=== PATIENT | male | born 1990 | race Caucasian/White ===

== ENCOUNTER 2021-01-29 06:00 | Emergency (ER) | payer OTHER, SELFPAY ==
--- NOTE | ~2021-01-29 | CT_ITS ---
EXAMINATION: CT ABDOMEN AND PELVIS WITHOUT CONTRAST CLINICAL INFORMATION: Bilateral flank and testicular pain COMPARISON: None TECHNIQUE: Multidetector volumetric imaging was performed from the superior aspect of the liver through the pubic symphysis. Sagittal and coronal reformatted images were obtained on the technologist's workstation. This CT examination was performed using dose optimization techniques as appropriate, variously including the following: *Automated exposure control *Adjustment of mA and/or kV according to patient size (this includes techniques or standardized protocols for targeted exams where dose is matched to indication/reason for exam; i.e. extremities or head) *Use of iterative reconstruction technique DLP: And 78 mGy-cm FINDINGS: LUNG BASES: The visualized lung bases are unremarkable. LIVER, GALLBLADDER, AND BILIARY TREE: The liver is normal in size, shape, and attenuation. No focal hepatic lesion or biliary ductal dilatation is present. The gallbladder is unremarkable with no evidence of radiopaque gallstones, gallbladder wall thickening, or obvious pericholecystic inflammatory changes. PANCREAS: Unremarkable. SPLEEN: Unremarkable. ADRENAL GLANDS: Unremarkable. KIDNEYS AND URETERS: There is a 2 mm calculus in the distal left ureter near the ureterovesicular junction with minimal hydronephrosis. No right hydronephrosis. BLADDER: Nearly empty and not adequately evaluated. GASTROINTESTINAL TRACT: Assessment for wall thickening in some segments of the colon is limited due to luminal collapse, though no significant pericolonic stranding is seen to strongly suggest a colitis. No evidence of bowel obstruction. The appendix is unremarkable. No free fluid or free air is seen. ABDOMINAL WALL: No significant hernia is appreciated. LYMPH NODES: Normal. VASCULAR: Unremarkable. PELVIC VISCERA: Unremarkable. OSSEOUS STRUCTURES: Unremarkable. CT/CT abdomen pelvis wo con IMPRESSION: Distal left ureteral calculus measuring 2 mm near the ureterovesicular junction with minimal hydronephrosis.
--- NOTE | ~2021-01-29 | US_ITS ---
EXAMINATION: US SCROTUM CLINICAL INFORMATION: Pain. Evaluate for testicular torsion. COMPARISON: Scrotal ultrasound from 10/02/2017. CT abdomen and pelvis from 01/29/2021 TECHNIQUE: A sonogram of the scrotum was performed assessing hagan-scale appearance and color Doppler flow. Spectral Doppler analysis of the arterial and venous flow were performed in the testes bilaterally. FINDINGS: The right and left testicles have normal size, contour and echotexture. No microlithiasis or mass. Color Doppler images with spectral waveforms show presence of normal, symmetric arterial and venous flow within each testicle. No hydrocele or varicocele. No epididymal abnormality detected. US/US scrotum doppler IMPRESSION: Normal testicles. No evidence of testicular mass or torsion.
[2021-01-29 06:11] VITALS: RESP 14
[2021-01-29] MEDS: HYDROmorphone HCl 1 MG/ML SYRINGE IVPUSH (06:11)
[2021-01-29 06:15] VITALS: BP 143/97; PULSE 63; RESP 22; TEMP 36.7; O2SAT 99; BMI 37.3
--- NOTE | 2021-01-29 06:17 | ED.GENADULT ---
HPI - General Adult General Chief complaint: Urogenital-Male Stated complaint: Testicular Pain Time Seen by Provider: 01/29/21 06:05 Source: patient and EMS Mode of arrival: EMS Limitations: no limitations History of Present Illness HPI narrative: Patient comes emergency room complaining of left-sided testicular pain and left-sided flank pain. Patient states he has had this pain before, he was told that he had kidney stones. Pain started approximately 2-3 hours prior to arrival. Patient denies dysuria Related Data Previous Rx's Medication Instructions Recorded ketorolac 10 mg PO Q6H PRN 5 Days #10 tab 01/29/21 ondansetron HCl [Zofran] 4 mg PO Q6H PRN #10 tab 01/29/21 prednisone 20 mg PO DAILY #5 tab 01/29/21 tamsulosin 0.4 mg PO DAILY #10 cap 01/29/21 Allergies Allergy/AdvReac Type Severity Reaction Status Date / Time No Known Allergies Allergy Unverified 03/23/20 19:28 [No Known Allergies*] Review of Systems Review of Systems: Constitutional : No Weight loss, No Fever, No Chills, No Night Sweats, No Fatigue, No Malaise ENT/Mouth : No Hearing loss, No Ear Pain, No Nasal Congestion, No Sinus Pain, No Hoarseness, No sore throat, No Rhinorrhea, No Swallowing Difficulty Eyes: No Eye Pain, No Swelling, No Redness, No Foreign Body, No Discharge, No Vision Changes Cardiovascular : No Chest Pain, No SOB, No Dyspnea on Exertion, No Orthopnea, No Edema, No Palpitations Respiratory : No Cough, No Sputum, No Wheezing, No Smoke Exposure, No Dyspnea Gastrointestinal : No Nausea, No Vomiting, No Diarrhea, No Constipation, No abdominal Pain, No Hematochezia, No Melena Genitourinary : no irregular bleeding, No Dysuria, No Urinary Frequency, No Hematuria, No Urinary Incontinence, No Urgency, complaining of left-sided Flank Pain and left testicular pain, No Urinary Flow Changes, No Hesitancy Musculoskeletal : No joint pain, No Myalgias, No Joint Swelling Skin : No Skin Lesions, No rash Neuro : No Weakness, No Numbness, No Paresthesias, No Loss of Consciousness, No Dizziness, No Headache Psych : No Anxiety/Panic, No Depression, No SI/HI/AH/VH, No Social Issues, Heme/Lymph: No Bruising, No Bleeding,No Lymphadenopathy Endocrine : No Polyuria, No Polydipsia, No Temperature Intolerance [facility] Past Medical History Medical History Asthma Social History Social History Advance Directives: Yes Advance Directives Information Provided: Yes Advance Directives on File: No Physical Exam Vital Signs: Vital Signs: Last Vital Signs Temp 98.1 F 01/29/21 06:15 Pulse 56 01/29/21 07:00 Resp 23 H 01/29/21 07:00 BP 144/82 H 01/29/21 07:00 Pulse Ox 98 01/29/21 07:00 Body Mass Index 37.3 Appearance: Alert. Oriented X3. Looks very uncomfortable, Eyes: Pupils equal, round and reactive to light. ENT: Pharynx normal. Neck: Normal inspection. Neck supple. No lymph nodes noted. No crepitus CVS: Normal heart rate and rhythm. Pulses normal. Normal S1 and S2 Respiratory: No respiratory distress. Breath sounds normal. No Wheezing. No rales Abdomen: Soft, mild tenderness to palpation. No rigidity. No distention. : Tenderness to palpation over the left testicle Skin: Skin warm and dry. Normal skin color. Normal skin turgor. Extremities: No lower extremity edema. No lower extremity edema. No Lacerations. No Rash Neuro: Oriented X 3. No motor deficit. No sensory deficit. Moving all extermities. No slurred speech. Course Course Course Narrative: Patient had 1 syncopal episodes in the emergency room due to pain, weakness, no seizure-like activity. Testicular Salter sound negative, CT scan shows 2 mm stone distal left ureter Urinalysis pending Sign-out given to Dr. Estes Medical Decision Making Lab Data Result diagrams: 01/29/21 06:40 01/29/21 06:40 Labs: Lab Results 01/29/21 01/29/21 Range/Units 06:40 06:40 WBC 13.4 H (4.8-10.8) X10*3/uL RBC 4.83 (4.60-5.80) X10*6/uL Hgb 14.3 (14.0-18.0) g/dl Hct 41.1 L (42-52) % MCV 85.1 (80-98) fL MCH 29.6 (27.0-33.0) pg MCHC 34.8 (31.0-36.0) g/dl RDW 12.2 (11.0-16.0) % Plt Count 282 (160-400) X10*3/uL MPV 9.2 L (9.4-12.4) fL Immature Gran % (Auto) 0.6 H (0.0-0.4) % Neut % (Auto) 76.4 H (45-73) % Lymph % (Auto) 16.1 L (20-40) % [place] % (Auto) 6.2 (2-11) % Eos % (Auto) 0.5 (0-4) % Baso % (Auto) 0.2 (0-2) % Lymph # (Auto) 2.2 (1.2-4.9) X10*3/uL [place] # (Auto) 0.8 (0.1-1.2) X10*3/uL Eos # (Auto) 0.1 (0.0-0.4) X10*3/uL Baso # (Auto) 0.0 (0.0-0.2) X10*3/uL Abs Immat Gran (auto) 0.08 H (0.00-0.03) X10*3/uL Absolute Neuts (auto) 10.3 H (2.0-8.3) X10*3/uL Absolute Nucleated RBC 0.000 (0.0-0.012) X10*3/uL Nucleated RBC % (auto) 0.0 (0.0-0.2) /100WBC Sodium 141 (135-145) mmol/L Potassium 3.9 (3.3-5.1) mmol/L Chloride 111 H (96-108) mmol/L Carbon Dioxide 19 L (22-29) mmol/L Anion Gap 15 (12-20) BUN 11 (9-16) mg/dL Creatinine 0.89 (0.5-1.4) mg/dL Estim Creat Clear Calc 165.5 Estimated GFR > 60 Random Glucose 134 H (60-115) mg/dL Calcium 9.4 (8.4-10.2) mg/dL Total Bilirubin 0.5 (0.0-1.0) mg/dL Direct Bilirubin 0.3 (0.0-0.5) mg/dL AST 14 (5-37) U/L ALT 23 (0-40) U/L Alkaline Phosphatase 74 (39-117) U/L Total Protein 7.2 (6.5-8.0) g/dL Albumin 4.4 (3.5-5.0) g/dL Imaging Data Scrotum Doppler ultrasound: Radiologist's impression: The right and left testicles have normal size, contour and echotexture. No microlithiasis or mass. Color Doppler images with spectral waveforms show presence of normal, symmetric arterial and venous flow within each testicle. No hydrocele or varicocele. No epididymal abnormality detected. US/US scrotum doppler IMPRESSION: Normal testicles. No evidence of testicular mass or torsion. CT scan - abdomen: Radiologist's impression: FINDINGS: LUNG BASES: The visualized lung bases are unremarkable. LIVER, GALLBLADDER, AND BILIARY TREE: The liver is normal in size, shape, and attenuation. No focal hepatic lesion or biliary ductal dilatation is present. The gallbladder is unremarkable with no evidence of radiopaque gallstones, gallbladder wall thickening, or obvious pericholecystic inflammatory changes. PANCREAS: Unremarkable. SPLEEN: Unremarkable. ADRENAL GLANDS: Unremarkable. KIDNEYS AND URETERS: There is a 2 mm calculus in the distal left ureter near the ureterovesicular junction with minimal hydronephrosis. No right hydronephrosis. BLADDER: Nearly empty and not adequately evaluated. GASTROINTESTINAL TRACT: Assessment for wall thickening in some segments of the colon is limited due to luminal collapse, though no significant pericolonic stranding is seen to strongly suggest a colitis. No evidence of bowel obstruction. The appendix is unremarkable. No free fluid or free air is seen. ABDOMINAL WALL: No significant hernia is appreciated. LYMPH NODES: Normal. VASCULAR: Unremarkable. PELVIC VISCERA: Unremarkable. OSSEOUS STRUCTURES: Unremarkable. CT/CT abdomen pelvis wo con IMPRESSION: Distal left ureteral calculus measuring 2 mm near the ureterovesicular junction with minimal hydronephrosis. Discharge Plan Discharge Clinical Impression: Ureterolithiasis, Syncope, vasovagal Patient Disposition: Home, Self-Care Instructions: Kidney Stones (ED) Additional Instructions: Please follow-up with your primary care physician tomorrow. If you have any worsening or new symptoms, please return to the emergency room or call 911 Prescriptions: New ketorolac 10 mg tablet 10 mg PO Q6H PRN (Reason: pain) 5 Days Qty: 10 RF: 0 prednisone 20 mg tablet 20 mg PO DAILY Qty: 5 RF: 0 tamsulosin 0.4 mg capsule 0.4 mg PO DAILY Qty: 10 RF: 0 ondansetron HCl [Zofran] 4 mg tablet 4 mg PO Q6H PRN (Reason: nausea and vomiting) Qty: 10 RF: 0
[2021-01-29 06:19] VITALS: BP 145/86; PULSE 68; RESP 20; O2SAT 99
[2021-01-29 06:46] LABS: MANUAL DIFF FLAG NO
[2021-01-29 06:57] LABS: Basophils Percent Auto 0.2 % (0-2); Eosinophils Absolute Auto 0.1 X10*3/uL (0.0-0.4); Eosinophils Percent Auto 0.5 % (0-4); Hematocrit 41.1 % (42-52); Hemoglobin 14.3 g/dl (14.0-18.0); Imm Gran Abs Auto 0.08 X10*3/uL (0.00-0.03); Imm Gran Pct Auto 0.6 % (0.0-0.4); Lymphocytes Absolute Auto 2.2 X10*3/uL (1.2-4.9); Lymphocytes Percent Auto 16.1 % (20-40); Mean Corpuscular HGB Conc 34.8 g/dl (31.0-36.0); Mean Corpuscular Hemoglobin 29.6 pg (27.0-33.0); Mean Corpuscular Volume 85.1 fL (80-98); Mean Platelet Volume 9.2 fL (9.4-12.4); Monocytes Absolute Auto 0.8 X10*3/uL (0.1-1.2); Monocytes Percent Auto 6.2 % (2-11); Neutrophils Absolute Auto 10.3 X10*3/uL (2.0-8.3); Neutrophils Percent Auto 76.4 % (45-73); Platelet Count 282 X10*3/uL (160-400); Red Blood Count 4.83 X10*6/uL (4.60-5.80); Red Cell Distribution Width 12.2 % (11.0-16.0); White Blood Count 13.4 X10*3/uL (4.8-10.8)
[2021-01-29 07:00] VITALS: BP 144/82; PULSE 56; RESP 23; O2SAT 98
[2021-01-29 07:18] LABS: Alanine Aminotransferase 23 U/L (0-40); Albumin Level 4.4 g/dL (3.5-5.0); Alkaline Phosphatase 74 U/L (39-117); Anion Gap 15 (12-20); Aspartate Amino Transferase 14 U/L (5-37); Bilirubin Direct 0.3 mg/dL (0.0-0.5); Bilirubin Total 0.5 mg/dL (0.0-1.0); Blood Urea Nitrogen 11 mg/dL (9-16); Calcium 9.4 mg/dL (8.4-10.2); Carbon Dioxide 19 mmol/L (22-29); Chloride 111 mmol/L (96-108); Creatinine Clr Calc Pharmacy 165.5; Estimated Glomerular Filt Rate > 60; Glucose Random 134 mg/dL (60-115); Potassium 3.9 mmol/L (3.3-5.1); Sodium 141 mmol/L (135-145); Total Protein 7.2 g/dL (6.5-8.0)
[2021-01-29] MEDS: Ketorolac Tromethamine 15 MG/ML VIAL 30 MG IVPUSH (07:34)
--- NOTE | 2021-01-29 09:05 | PC.NURSE ---
PT REPORTS MARKED IMPROVEMENT IN SX S/P MEDICATION, STS FEELING WELL ATT, PT SLEEPING, EASILY AROUSABLE, PT AWARE OF NEED FOR URINE SAMPLE TO MAKE DISPOSITION. PT IN NAD, AWARE/AGREEABLE TO PLAN OF CARE.
[2021-01-29 09:15] VITALS: BP 117/65; PULSE 54; RESP 16; O2SAT 98
--- NOTE | 2021-01-29 09:41 | ED.MALEGU ---
HPI - Male Genitourinary General Chief complaint: Urogenital-Male Stated complaint: Testicular Pain Time Seen by Provider: 01/29/21 06:05 Source: patient and EMS Mode of arrival: EMS Limitations: no limitations Related Data Previous Rx's Medication Instructions Recorded ketorolac 10 mg tablet 10 mg PO Q6H PRN 5 Days #10 tab 01/29/21 ondansetron HCl 4 mg tablet 4 mg PO Q6H PRN #10 tab 01/29/21 (Zofran) prednisone 20 mg tablet 20 mg PO DAILY #5 tab 01/29/21 tamsulosin 0.4 mg capsule 0.4 mg PO DAILY #10 cap 01/29/21 Allergies Allergy/AdvReac Type Severity Reaction Status Date / Time No Known Allergies Allergy Unverified 03/23/20 19:28 [No Known Allergies*] [facility], [facility] Past Medical History Medical History Asthma Social History Social History Advance Directives: Yes Advance Directives Information Provided: Yes Advance Directives on File: No Physical Exam Vital Signs: Vital Signs: Last Vital Signs Temp 98.1 F 01/29/21 06:15 Pulse 54 01/29/21 09:15 Resp 16 01/29/21 09:15 BP 117/65 01/29/21 09:15 Pulse Ox 98 01/29/21 09:15 Body Mass Index 37.3 MDM - Male Genitourinary Lab Data Result diagrams: 01/29/21 06:40 01/29/21 06:40 Labs: Lab Results 01/29/21 01/29/21 01/29/21 Range/Units 06:40 06:40 09:58 WBC 13.4 H (4.8-10.8) X10*3/uL RBC 4.83 (4.60-5.80) X10*6/uL Hgb 14.3 (14.0-18.0) g/dl Hct 41.1 L (42-52) % MCV 85.1 (80-98) fL MCH 29.6 (27.0-33.0) pg MCHC 34.8 (31.0-36.0) g/dl RDW 12.2 (11.0-16.0) % Plt Count 282 (160-400) X10*3/uL MPV 9.2 L (9.4-12.4) fL Immature Gran % (Auto) 0.6 H (0.0-0.4) % Neut % (Auto) 76.4 H (45-73) % Lymph % (Auto) 16.1 L (20-40) % [place] % (Auto) 6.2 (2-11) % Eos % (Auto) 0.5 (0-4) % Baso % (Auto) 0.2 (0-2) % Lymph # (Auto) 2.2 (1.2-4.9) X10*3/uL [place] # (Auto) 0.8 (0.1-1.2) X10*3/uL Eos # (Auto) 0.1 (0.0-0.4) X10*3/uL Baso # (Auto) 0.0 (0.0-0.2) X10*3/uL Abs Immat Gran (auto) 0.08 H (0.00-0.03) X10*3/uL Absolute Neuts (auto) 10.3 H (2.0-8.3) X10*3/uL Absolute Nucleated RBC 0.000 (0.0-0.012) X10*3/uL Nucleated RBC % (auto) 0.0 (0.0-0.2) /100WBC Sodium 141 (135-145) mmol/L Potassium 3.9 (3.3-5.1) mmol/L Chloride 111 H (96-108) mmol/L Carbon Dioxide 19 L (22-29) mmol/L Anion Gap 15 (12-20) BUN 11 (9-16) mg/dL Creatinine 0.89 (0.5-1.4) mg/dL Estim Creat Clear Calc 165.5 Estimated GFR > 60 Random Glucose 134 H (60-115) mg/dL Calcium 9.4 (8.4-10.2) mg/dL Total Bilirubin 0.5 (0.0-1.0) mg/dL Direct Bilirubin 0.3 (0.0-0.5) mg/dL AST 14 (5-37) U/L ALT 23 (0-40) U/L Alkaline Phosphatase 74 (39-117) U/L Total Protein 7.2 (6.5-8.0) g/dL Albumin 4.4 (3.5-5.0) g/dL Urine Color MAYO Urine Appearance CLOUDY Urine pH 5.5 (5.0-8.0) Ur Specific [place] >= 1.030 H (1.005-1.025) Urine Protein 1+ H (NEG-TRACE) MG/DL Urine Glucose (UA) NEG (NEG) MG/DL Urine Ketones 40 (NEG) MG/DL Urine Blood 3+ H (NEG) Urine Nitrite NEG (NEG) Ur Leukocyte Esterase NEG (NEG) Urine RBC 15-29 H (0) /HPF Urine WBC 0 (0-4) /HPF Ur Squamous Epith Cells NONE /LPF Urine Bacteria NONE /LPF Hyaline Casts 0-2 /LPF Urine Mucus 4+ /LPF Discharge Plan Discharge Clinical Impression: Ureterolithiasis, Syncope, vasovagal Patient Disposition: Home, Self-Care Instructions: Kidney Stones (ED) Additional Instructions: The Doppler ultrasound of your testicles were unremarkable with no evidence for a twisted testicle. The CT scan of your abdomen pelvis revealed a 2 mm kidney stone in the left ureter (this is the tube that connects the kidney to the bladder) right at the junction of where the tube connects to the bladder. Please follow the kidney stone instructions, strain your urine to see if you catch the stone and take the medications as prescribed by Dr. Harmon. Please follow-up with your primary care physician tomorrow. If you have any worsening or new symptoms, please return to the emergency room or call 911 If your in a better in 10 days and follow-up with the on-call urologist, Dr. De Santiago. Prescriptions: New ketorolac 10 mg tablet 10 mg PO Q6H PRN (Reason: pain) 5 Days Qty: 10 RF: 0 prednisone 20 mg tablet 20 mg PO DAILY Qty: 5 RF: 0 tamsulosin 0.4 mg capsule 0.4 mg PO DAILY Qty: 10 RF: 0 ondansetron HCl [Zofran] 4 mg tablet 4 mg PO Q6H PRN (Reason: nausea and vomiting) Qty: 10 RF: 0 Referrals: Yehuda De Santiago MD [Physician] - 10 days Interventions: ED Discharge Assessment Last Done: 01/29/21 11:51 Discharge Date/Time: 01/29/21 11:52
[2021-01-29 10:11] LABS: Glucose Urine UA NEG (NEG); Leukocyte Esterase Urine NEG (NEG); Nitrite Urine NEG (NEG); PH 5.5 (5.0-8.0); Specific Gravity - Urine >= 1.030 (1.005-1.025); Urine Blood 3+ (NEG); Urine Ketones 40 MG/DL (NEG); Urine Protein 1+ MG/DL (NEG-TRACE)
[2021-01-29 10:26] LABS: Appearance Urine CLOUDY; Color Urine AMBER
[2021-01-29 11:12] LABS: Hyaline Casts Urine 0-2 /LPF; Mucus Urine 4+ /LPF; WBC Urine 0 /HPF (0-4)
== END 2021-01-29 11:52 | disposition home or self-care (01) ==
PROVIDERS: Emergency Medicine; Emergency Provider Emergency Medicine Emergency Medical Services
DX: N13.2 Hydronephrosis with renal and ureteral calculous obstruction (principal); R55 Syncope and collapse
CPT/HCPCS: 36415; 74176; 80048; 80076; 81001; 81003; 85025; 93975; 96374; 96375; 99285; J1170; J1885; J2405